=== PATIENT | female | born 1970 | race African-American/Black ===

== ENCOUNTER 2017-06-25 02:00 | Emergency (ER) | payer SELFPAY ==
[2017-06-25 02:08] VITALS: BMI 28.3
--- NOTE | 2017-06-25 02:19 | DR.GENAD ---
HPI - PCP Primary Care Physician: LARRY - Complaint/Symptoms Chief Complaint Doctors Comments: Patient is alert in NAD, answers questions appropriately. She reports that she had vomiting two days ago, denies fever, headache or diarrhea. She has been [facility] at [facility] for twenty [facility] years. She denies cigarettes or alcohol use. Chief Complaint:: PT STATES" I STARTED HAVING N/V THIS MORNING" PT'S SON TOLD EMS THAT PT HAD BEEN TALKING OUT OF HER HEAD - Source History Provided: Patient - Mode of Arrival Mode of Arrival: EMS - Timing Onset of Chief Complaint: 06/24/17 PMH - PMH Past Medical History: Yes Past Medical History: Anxiety Past Surgical History: Yes Surgical History: , [employer] Surgery Past Surgical History Comment: TUBAL - Family History History of Family Medical Conditions: Yes Family Medical History: Hypertension - Social History Does patient currently use any type of tobacco product: No Type of Tobacco Use: None Does any household member use tobacco: No Alcohol Use: None Do you use any recreational Drugs:: No Lives With: Family Lives Where: Home - infectious screening In the last 2 months have you had wt loss of >10#?: NO Have you had fever, night sweats or hemotysis?: No Have you traveled outside the country in the last 6 months?: No Isolation: Standard ROS - Review of Systems Eyes: No Symptoms Reported ENTM: No Symptoms Reported Respiratoy: No Symptoms Reported Cardiovascular: No Symptoms Reported Gastrointestinal/Abdominal: No Symptoms Reported Genitourinary: No Symptoms Reported Neurological: No Symptoms Reported Musculoskeletal: No Symptoms Reported Integumentary: No Symptoms Reported Hematologic/Lymphatic: No Symptoms Reported Endocrine: No Symptoms Reported Psychiatric: No Symptoms Reported All Other Systems: Reviewed and Negative PE - Vital Signs Vitals: Temperature 98.1 F Pulse Rate 65 Respiratory Rate 18 Blood Pressure 118/77 O2 Sat by Pulse Oximetry 99 - General Limitations: No Limitations General Appearance: Alert, In No Apparent Distress - Head Head Exam: Normal Inspection, Atraumatic - Eyes Eye exam: Normal Appearance, PERRL, EOMI - ENT ENT Exam: Normal Exam External Ear Exam: Normal External Inspection TM/Canal Exam: Bilateral Normal Nose Exam: Normal Nose Exam Mouth Exam: Normal Inspection Throat Exam: Normal Inspection - Neck Neck Exam: Normal Inspection, Full ROM - Chest Chest Inspection: Normal Inspection - Respiratory Respiratory Exam: Normal Lung Sounds Bilat Respiratory Exam: Bilateral Clear to Auscultation - Cardiovascular Cardiovascular Exam: Regular Rate, Normal Rhythm - Abdominal Exam Abdominal Exam: Normal Inspection, Normal Bowel Sounds Abdominal Tenderness: negative: RUQ, RLQ, LUQ, LLQ, Epigastrium, Suprapubic, Diffuse, Mild, Moderate, Severe, Other - Extremities Extremities Exam: Normal Inspection, Full ROM - Back Back Exam: Normal Inspection, Full ROM - Neurologic Neurological Exam: Alert, Oriented X3, CN II-XII Intact ROR - Labs Reviewed Result Diagrams: 06/25/17 02:37 06/25/17 02:37 Laboratory: WBC 7.9 X10^3/uL (3.6-10.0) 06/25/17 02:37 RBC 5.00 X10^6/uL (3.5-5.4) 06/25/17 02:37 Hgb 11.9 g/dL (12.0-16.0) L 06/25/17 02:37 Hct 37.3 % (36.0-47.0) 06/25/17 02:37 MCV 74.5 fL (80.0-100.0) L 06/25/17 02:37 MCH 23.7 pg (27.0-34.0) L 06/25/17 02:37 MCHC 31.9 g/dL (33.0-35.0) L 06/25/17 02:37 RDW 13.9 % (11.6-16.5) 06/25/17 02:37 Plt Count 361 X10^3/uL (150.0-450.0) 06/25/17 02:37 Plt Count Comment Adequate (ADEQUATE) 06/25/17 02:37 MPV 8.0 fL (7.4-11.0) 06/25/17 02:37 Neut % 51.4 % (42.0-75.0) 06/25/17 02:37 Lymph % 39.9 % (21.0-51.0) 06/25/17 02:37 Garrett % 7.3 % (0.0-13.0) 06/25/17 02:37 Eos % 0.7 % (0.9-2.9) L 06/25/17 02:37 Baso % 0.7 % (0.2-1.0) 06/25/17 02:37 Neut # 4.1 x10^3/uL (2.2-4.8) 06/25/17 02:37 Lymph # 3.2 X10^3/uL (1.3-2.9) H 06/25/17 02:37 Garrett # 0.6 x10^3/uL (0.3-0.8) 06/25/17 02:37 Eos # 0.1 x10^3/uL (0.0-0.2) 06/25/17 02:37 Baso # 0.1 X10^3/uL (0.0-0.1) 06/25/17 02:37 Absolute Nucleated RBC 0.1 /100WBC 06/25/17 02:37 Plt Morphology Comment Normal (NORMAL) 06/25/17 02:37 RBC Morphology Abnormal (NORMAL) A 06/25/17 02:37 Hypochromasia 1+ A 06/25/17 02:37 Microcytosis 1+ A 06/25/17 02:37 Sodium 140 mmol/L (136-145) 06/25/17 02:37 Corrected Sodium 140 mmol/L (136-145) 06/25/17 02:37 Potassium 3.6 mmol/L (3.5-5.1) 06/25/17 02:37 Chloride 103 mmol/L (98-107) 06/25/17 02:37 Carbon Dioxide 27.9 mmol/L (21-32) 06/25/17 02:37 BUN 9 mg/dL (7-18) 06/25/17 02:37 Creatinine 0.98 mg/dL (0.55-1.02) 06/25/17 02:37 Est GFR (MDRD) Af Amer > 60 (>60) 06/25/17 02:37 Est GFR (MDRD) Non-Af > 60 (>60) 06/25/17 02:37 Glucose 113 mg/dL (65-99) H 06/25/17 02:37 Calcium 8.8 mg/dL (8.5-10.1) 06/25/17 02:37 Specimen Type Clean catch urine 06/25/17 02:39 Urine Color Yellow (YELLOW) 06/25/17 02:39 Urine Appearance Clear (CLEAR) 06/25/17 02:39 Urine pH 6.0 (5.0 - 8.0) 06/25/17 02:39 Ur Specific [place] 1.020 (1.000-1.030) 06/25/17 02:39 Urine Protein 1+ (NEGATIVE) 06/25/17 02:39 Urine Glucose (UA) Negative (NEGATIVE) 06/25/17 02:39 Urine Ketones Negative (NEGATIVE) 06/25/17 02:39 Urine Occult Blood 1+ (NEGATIVE) 06/25/17 02:39 Urine Nitrite Negative (NEGATIVE) 06/25/17 02:39 Urine Bilirubin Negative (NEGATIVE) 06/25/17 02:39 Urine Urobilinogen Normal (NORMAL) 06/25/17 02:39 Ur Leukocyte Esterase Negative (NEGATIVE) 06/25/17 02:39 Urine RBC 3-5 /HPF (NEGATIVE) 06/25/17 02:39 Urine WBC 0-3 /HPF (NEGATIVE) 06/25/17 02:39 Ur Squamous Epith Cells Rare /HPF (NEGATIVE) 06/25/17 02:39 Urine Bacteria Trace /HPF (NEGATIVE) 06/25/17 02:39 Ur Culture Indicated? No/not indicated 06/25/17 02:39 - Diagnosis Discharge Problem: Nausea - Discharge Plan Condition: Stable - Follow ups/Referrals Follow ups/Referrals: Ana Paula JUAREZ [Primary Care Provider] - 3 days - Instructions
[2017-06-25 02:46] LABS: BASOPHILS # (AUTO) 0.1 X10^3/uL (0.0-0.1); BASOPHILS % (AUTO) 0.7 % (0.2-1.0); EOSINOPHILS # (AUTO) 0.1 x10^3/uL (0.0-0.2); EOSINOPHILS % (AUTO) 0.7 % (0.9-2.9); HEMATOCRIT 37.3 % (36.0-47.0); HEMOGLOBIN 11.9 g/dL (12.0-16.0); LYMPHOCYTES # (AUTO) 3.2 X10^3/uL (1.3-2.9); LYMPHOCYTES % (AUTO) 39.9 % (21.0-51.0); MEAN CORPUSCULAR HEMOGLOBIN 23.7 pg (27.0-34.0); MEAN CORPUSCULAR HGB CONC 31.9 g/dL (33.0-35.0); MEAN CORPUSCULAR VOLUME 74.5 fL (80.0-100.0); MONOCYTES # (AUTO) 0.6 x10^3/uL (0.3-0.8); MONOCYTES % (AUTO) 7.3 % (0.0-13.0); NEUTROPHILS # (AUTO) 4.1 x10^3/uL (2.2-4.8); NEUTROPHILS % (AUTO) 51.4 % (42.0-75.0); PLATELET COUNT 361 X10^3/uL (150.0-450.0); RED CELL DISTRIBUTION WIDTH 13.9 % (11.6-16.5); WHITE BLOOD COUNT 7.9 X10^3/uL (3.6-10.0)
[2017-06-25 02:47] LABS: BILIRUBIN,URINE NEGATIVE (NEGATIVE); BLOOD/HEMOGLOBIN,URINE 1+ (NEGATIVE); GLUCOSE, URINE NEGATIVE (NEGATIVE); KETONES,URINE NEGATIVE (NEGATIVE); LEUKOCYTE ESTERASE ,URINE NEGATIVE (NEGATIVE); NITRITES,URINE NEGATIVE (NEGATIVE); PROTEIN,URINE 1+ (NEGATIVE); UROBILINOGEN,URINE NORMAL (NORMAL)
[2017-06-25 02:52] LABS: BLOOD UREA NITROGEN 9 mg/dL (7-18); CALCIUM 8.8 mg/dL (8.5-10.1); CARBON DIOXIDE 27.9 mmol/L (21-32); CHLORIDE 103 mmol/L (98-107); COR NA(FOR HYPERGLY) 140 mmol/L (136-145); CREATININE 0.98 mg/dL (0.55-1.02); SODIUM 140 mmol/L (136-145); eGFR BLACK RACES > 60 (>60); eGFR NON BLACK RACES > 60 (>60)
[2017-06-25 02:53] LABS: APPEARANCE,URINE CLEAR (CLEAR); BACTERIA,URINE TRACE /HPF (NEGATIVE); COLOR,URINE YELLOW (YELLOW); SQUAMOUS EPITHELIAL CELL,UR RARE /HPF (NEGATIVE)
[2017-06-25 02:55] LABS: HYPOCHROMASIA 1+; MICROCYTOSIS 1+; PLATELET MORPHOLOGY COMMENT NORMAL (NORMAL)
[2017-06-25 03:14] VITALS: BP 135/92
== END 2017-06-25 03:14 | disposition home or self-care (01) ==
LOC: ER 02:00
DX: R11.0 Nausea (principal)
CPT/HCPCS: 36415; 80048; 81001; 85025; 99282